=== PATIENT | male | born 1940 | race Two or more races ===

== ENCOUNTER 2018-02-13 07:33 | Outpatient (CLI) | payer OTHER | END 2018-02-13 07:41 | disposition home or self-care (01) | LOC: NUCLEAR 07:33 | DX: I25.10 Atherosclerotic heart disease of native coronary artery without angina pectoris (principal) | CPT/HCPCS: 78452; 93017; A9500; J0153 ==

== ENCOUNTER 2021-09-07 07:19 | Outpatient (CLI) | payer OTHER | END 2021-09-07 08:35 | disposition home or self-care (01) | LOC: NUCLEAR 07:19 | PROVIDERS: ATTEND Internal Medicine Cardiovascular Disease | DX: I20.9 Angina pectoris, unspecified (principal) | CPT/HCPCS: 78452; A9500 ==

== ENCOUNTER 2024-12-21 07:18 | Outpatient (CLI) | payer OTHER | END 2024-12-21 07:20 | disposition home or self-care (01) | LOC: NUCLEAR 07:18 | PROVIDERS: ATTEND Internal Medicine Cardiovascular Disease | DX: I20.9 Angina pectoris, unspecified (principal) | CPT/HCPCS: 78452; 93017; A9500; J0153 ==